=== PATIENT | male | born 1995 | race Caucasian/White ===

== ENCOUNTER 2017-06-28 07:47 | Emergency (ER) | payer BC ==
--- NOTE | 2017-06-28 09:36 | ED ---
Throat Pain/Nasal Congestion - HPI Summary HPI Summary: 22 male presents with complaints of dry mouth x 4 days. He has had trouble swallowing due to his mouth being so dry. Patient states he has been drinking water and chewing gum to help produce saliva. It was working up until this morning he feels it is not working as well. Has never had symptoms like this before. Patient says sometimes he has dry eyes but denies use of eye drops and scratchy/sand feeling. No other complaints or symptoms. Denies sore throat, difficulty breathing, palpitations. No fever/chills. Immunizations are UTD. PMHx significant for reactive arthritis. Not taking any medications. No currently taking plaqunil anymore. stopped taking ~4-5 weeks ago. - History of Current Complaint Chief Complaint: EDGeneral Time Seen by Provider: 06/28/17 08:45 Hx Obtained From: Patient Onset/Duration: Sudden Onset, Lasting Days - 4 Severity: Moderate Associated Signs And Symptoms: Positive: Dysphagia - due to mouth being so dry, and no saliva production Cough: None - Allergies/Home Medications Allergies/Adverse Reactions: Allergies Allergy/AdvReac Type Severity Reaction Status Date / Time No Known Allergies Allergy Verified 06/28/17 07:50 Home Medications: Home Medications NK [No Home Medications Reported] 06/28/17 [History Confirmed 06/28/17] PMH/Surg Hx/FS Hx/Imm Hx Endocrine/Hematology History: Denies: Hx Diabetes Cardiovascular History: Denies: Hx Hypertension Respiratory History: Denies: Hx Asthma Musculoskeletal History: Reports: Other Musculoskeletal History - reactive arthritis - Surgical History Surgery Procedure, Year, and Place: none - Immunization History Immunizations Up to Date: Yes Infectious Disease History: No Infectious Disease History: Denies: Traveled Outside the [place] in Last 30 Days - Family History Known Family History: Positive: None - Social History Alcohol Use: Weekly Alcohol Amount: weekends 6 drinks once weekly Substance Use Type: Reports: None Smoking Status (MU): Never Smoked Tobacco Review of Systems Constitutional: Negative Eyes: Negative Positive: Other - dry mouth, reduced saliva production Cardiovascular: Negative Respiratory: Negative Skin: Negative Neurological: Negative All Other Systems Reviewed And Are Negative: Yes Physical Exam Triage Information Reviewed: Yes Vital Signs On Initial Exam: Initial Vitals Temp Pulse Resp BP Pulse Ox 98.2 F 93 16 134/77 99 06/28/17 07:50 06/28/17 07:50 06/28/17 07:50 06/28/17 07:50 06/28/17 07:50 Vital Signs Reviewed: Yes Appearance: Positive: Well-Appearing, No Pain Distress, Well-Nourished Skin: Positive: Warm, Skin Color Reflects Adequate Perfusion, Dry. Negative: Cold, Soft, Pale, Erythema @ Head/Face: Positive: Normal Head/Face Inspection Eyes: Positive: EOMI, FARZANEH, Conjunctiva Clear, Other: - no sign or irritation or dry eyes ENT: Positive: Hearing grossly normal, Pharynx normal - some saliva noted, moist , patient chewing gum prior to exam, no sign of excessive dryness, no swelling or tenderness to salivary glands. no ludwigs angina, no abscess or signs of infection, normal in color, TMs normal. Negative: Nasal congestion, TM bulging , TM dull, Tonsillar swelling, Tonsillar exudate, Trismus, Muffled/hoarse voice Neck: Positive: Supple, Nontender, No Lymphadenopathy Respiratory/Lung Sounds: Positive: Clear to Auscultation, Breath Sounds Present. Negative: Rales, Rhonchi, Wheezes Cardiovascular: Positive: Normal, RRR, Pulses are Symmetrical in both Upper and Lower Extremities. Negative: Murmur, Rub Musculoskeletal: Positive: Normal, Strength/ROM Intact Neurological: Positive: Normal, Sensory/Motor Intact, Alert, Oriented to Person Place, Time Diagnostics - Vital Signs Vital Signs Temp Pulse Resp BP Pulse Ox 06/28/17 09:00 93 126/67 98 06/28/17 08:30 91 110/71 100 06/28/17 08:00 91 145/81 99 06/28/17 07:59 98.3 F 96 16 145/81 99 06/28/17 07:58 147/73 06/28/17 07:50 98.2 F 93 16 134/77 99 - Laboratory Lab Statement: Any lab studies that have been ordered have been reviewed, and results considered in the medical decision making process. EENT Course/Dx - Course Course Of Treatment: patient educated on possible casues of xerostomia. not currently taking any medication as possible SE cause. possible sjrogen's however no significant dry eye symptoms. recommended lozenges and sour sailgogoues. Follow up PCP or ENT for further work up and evaluation. Immunizations UTD. No concern for MUMPS, no symptoms. Aware of worsening signs and symptoms to watch out for. No emergent or further work up required at this time. - Differential Diagnoses Differential Diagnoses: Pharyngitis, Other - xerotsomia - Diagnoses Provider Diagnoses: Xerostomia Discharge - Discharge Plan Condition: Stable Disposition: HOME Patient Education Materials: Dry Mouth (ED) Referrals: [facility] [Primary Care Provider] - Jackson Light MD [Medical Doctor] - Additional Instructions: Please picker and packer lozenges or hard sour candies to suck on to produce saliva. Continue drinking plenty of fluids. Follow up with primary care provider or ENT for further evaluation. If you develop worsening signs or symptoms or new symptoms please seek medical attention.
[2017-06-28 09:50] VITALS: BP 132/74
== END 2017-06-28 09:49 | disposition home or self-care (01) ==
LOC: ED 07:47
DX: K11.7 Disturbances of salivary secretion (principal); M19.90 Unspecified osteoarthritis, unspecified site
CPT/HCPCS: 99282